=== PATIENT | female | born 2005 | race Caucasian/White ===

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

== ENCOUNTER 2025-03-01 09:49 | Emergency (ER) | payer OTHER, SELFPAY ==
[2025-03-01] MEDS ORDERED: Dexamethasone 10 MG/ML VIAL ONE (10:52)
[2025-03-01] MEDS ORDERED: HYDROcodone/Acetaminophen 5/325 mg Tablet ONE (10:53)
[2025-03-01] MEDS ORDERED: Lidocaine Viscous Sol 2% 15 ml UD Cup ONE (11:10)
== END 2025-03-01 11:12 | disposition home or self-care (01) ==
LOC: ERS 09:49
DX: K08.89 Other specified disorders of teeth and supporting structures (principal); F17.290 Nicotine dependence, other tobacco product, uncomplicated
CPT/HCPCS: 99282; J1100